=== PATIENT | female | born 1975 | race Caucasian/White ===

== ENCOUNTER → 2021-04-23 | Day surgery (SDC) | payer BC, OTHER ==
[~2021-04-23] MED LIST: ACETAMINOPHEN 1000 MG/100 ML 100 ML IV ONE; AMBIEN5 MG PO; KETOROLAC TROMETHAMINE 30 MG/ML VIAL ONE; LIDOCAINE HCL 2% LOCAL INJ 5 ML SDV VIAL INJ ONE; OFLOXACIN 0.3% (OTIC SOL) 5 ML BTL ONE; OXYMETAZOLINE HCL 0.05% NAS 1 SPRAY BTL ONE; POVIDONE IODINE 0.05% 0.05 % ML PO ONE; PROPOFOL IV EMULSION 10 MG/ML 20 ML VIAL ONE
[2021-04-23 13:40] VITALS: BP 124/62
== END ==
LOC: OR 09:57
PROVIDERS: ATTEND Otolaryngology Otolaryngology/Facial Plastic Surgery
DX: H65.91 Unspecified nonsuppurative otitis media, right ear (principal); H65.491 Other chronic nonsuppurative otitis media, right ear; J32.9 Chronic sinusitis, unspecified; H90.41 Sensorineural hearing loss, unilateral, right ear, with unrestricted hearing on the contralateral side; Z88.0 Allergy status to penicillin
CPT/HCPCS: 31237; 69436; 81025; 88305; J0131; J1885; J2001; J2704; U0002